=== PATIENT | male | born 1985 | race African-American/Black ===

== ENCOUNTER 2020-08-17 12:14 | Emergency (ER) | payer OTHER ==
[~2020-08-17] VITALS: Ht 167.6 cm; Wt 59.0 kg
== END 2020-08-17 14:00 | disposition home or self-care (01) ==
LOC: ER 12:14 → EDSEX 13:25 → ER 14:00
DX: S51.021A Laceration with foreign body of right elbow, initial encounter (principal); W45.8XXA Other foreign body or object entering through skin, initial encounter; Y93.89 Activity, other specified; Y92.098 Other place in other non-institutional residence as the place of occurrence of the external cause; Y99.8 Other external cause status

== ENCOUNTER 2020-08-27 10:34 | Emergency (ER) | payer OTHER ==
[~2020-08-27] VITALS: Ht 160 cm; Wt 59.0 kg
== END 2020-08-27 11:16 | disposition home or self-care (01) ==
LOC: ER 10:34 → EDSEX 11:03 → ER 11:03
DX: S51.021D Laceration with foreign body of right elbow, subsequent encounter (principal); T81.89XA Other complications of procedures, not elsewhere classified, initial encounter; W45.8XXD Other foreign body or object entering through skin, subsequent encounter; Z48.02 Encounter for removal of sutures

== ENCOUNTER 2020-08-29 08:00 | Emergency (ER) | payer OTHER ==
[~2020-08-29] VITALS: Ht 165.1 cm; Wt 59.0 kg
== END 2020-08-29 11:09 | disposition home or self-care (01) ==
LOC: ER 08:00
DX: T81.33XA Disruption of traumatic injury wound repair, initial encounter (principal); Z48.02 Encounter for removal of sutures; S51.0 Open wound of elbow; W45.8XXS Other foreign body or object entering through skin, sequela